=== PATIENT | male | born 1980 | race Caucasian/White ===

== ENCOUNTER 2016-12-27 13:37 | Emergency (ER) | payer SELFPAY ==
[2016-12-27 14:21] LABS: BASOPHILS 0.6 % (0-2); EOSINOPHILS 1.5 % (0-7); HEMATOCRIT 44.2 % (42.0-54.0); HEMOGLOBIN 15.3 g/dL (13.5-17.5); IMMATURE GRANULOCYTES 0.3 % (0-5); LYMPHOCYTES 19.2 % (15-50); MCH 32.6 pg (26.0-34.0); MCHC 34.6 g/dL (31.0-37.0); MEAN PLATELET VOLUME 10.6 fL (7.4-10.4); MONOCYTES 10.2 % (2-11); NEUTROPHILS 68.2 % (40-80); PLATELET COUNT 221 10x3/uL (130-400); RDW 13.9 % (11.5-14.5); WBC 7.9 10x3/uL (4.8-10.8)
[2016-12-27 14:42] LABS: ALBUMIN 3.5 g/dL (3.4-5.0); ALKALINE PHOSPHATASE 67 U/L (46-116); ALT (SGPT) 25 U/L (10-68); BILIRUBIN - TOTAL 0.25 mg/dL (0.2-1.3); CALC OSMOLALITY 283 mosm/kg (275-300); CALCIUM 8.7 mg/dL (8.5-10.1); CARBON DIOXIDE 29.7 mmol/L (21.0-32.0); CHLORIDE - SERUM 108 mmol/L (98-107); CREATININE - SERUM 0.9 mg/dL (0.6-1.3); GLUCOSE 75 mg/dL (74-106); POTASSIUM - SERUM 4.2 mmol/L (3.5-5.1); PROTEIN - SERUM 6.8 g/dL (6.4-8.2); SODIUM 144 mmol/L (136-145); UREA NITROGEN 8 mg/dL (7-18); eGFR NON AFRICAN AMERICAN > 90 mL/min (90-120)
[2016-12-27 15:07] LABS: APPEARANCE CLEAR (CLEAR); BILIRUBIN NEGATIVE (NEGATIVE); COLOR YELLOW (YELLOW); GLUCOSE NEGATIVE (NEGATIVE); KETONE NEGATIVE (NEGATIVE); LEUKOCYTE ESTERASE NEGATIVE (NEGATIVE); NITRITE NEGATIVE (NEGATIVE); PROTEIN NEGATIVE (NEGATIVE); UROBILINOGEN NORMAL (NORMAL)
== END 2016-12-27 15:40 | disposition home or self-care (01) ==
LOC: D.ER 13:37
PROVIDERS: Emergency Medicine
DX: R10.9 Unspecified abdominal pain (principal); R19.7 Diarrhea, unspecified; R11.10 Vomiting, unspecified; F17.200 Nicotine dependence, unspecified, uncomplicated

== ENCOUNTER 2017-09-22 10:29 | Emergency (ER) | payer SELFPAY | END 2017-09-22 12:08 | disposition home or self-care (01) | LOC: D.ER 10:29 | DX: S90.02XA Contusion of left ankle, initial encounter (principal); V43.52XA Car driver injured in collision with other type car in traffic accident, initial encounter; Y93.89 Activity, other specified; Y92.410 Unspecified street and highway as the place of occurrence of the external cause; S39.012A Strain of muscle, fascia and tendon of lower back, initial encounter; F17.200 Nicotine dependence, unspecified, uncomplicated ==

== ENCOUNTER 2017-09-28 15:46 | Emergency (ER) | payer SELFPAY ==
[2017-09-28] MEDS ORDERED: ULTRAM50 MG PO (23:32)
== END 2017-09-28 16:00 | disposition left against medical advice (07) ==
LOC: D.ER 15:46
DX: M25.572 Pain in left ankle and joints of left foot (principal); F17.200 Nicotine dependence, unspecified, uncomplicated

== ENCOUNTER 2017-09-28 20:44 | Emergency (ER) | payer SELFPAY ==
[~2017-09-28] VITALS: Ht 175.3 cm; Wt 60.9 kg
[2017-09-28 21:07] VITALS: Ht 175.3 cm; Wt 60.9 kg
[2017-09-28] MEDS ORDERED: ULTRAM50 MG PO (23:32)
[2017-09-29 05:56] VITALS: BP 125/86
== END 2017-09-29 00:26 | disposition home or self-care (01) ==
LOC: D.ER 20:44
DX: M25.572 Pain in left ankle and joints of left foot (principal); F17.200 Nicotine dependence, unspecified, uncomplicated

== ENCOUNTER 2017-10-12 16:42 | Emergency (ER) | payer SELFPAY ==
[~2017-10-12] VITALS: Ht 175.3 cm; Wt 60.9 kg
[~2017-10-12 16:42] MED LIST: ULTRAM50 MG PO
[2017-10-12 17:06] VITALS: Ht 175.3 cm; Wt 60.9 kg
[2017-10-12] MEDS ORDERED: VIBRAMYCIN 100100 MG PO (22:04)
[2017-10-12] MEDS ORDERED: VOLTAREN75 MG PO (22:04)
[2017-10-12 23:40] VITALS: BP 118/76
== END 2017-10-12 22:25 | disposition home or self-care (01) ==
LOC: D.ER 16:42
DX: L03.116 Cellulitis of left lower limb (principal); F17.200 Nicotine dependence, unspecified, uncomplicated

== ENCOUNTER 2018-06-20 13:50 | Emergency (ER) | payer SELFPAY ==
[~2018-06-20] VITALS: Ht 175.3 cm; Wt 60.9 kg
[~2018-06-20 13:50] MED LIST changes: +VIBRAMYCIN 100100 MG PO; +VOLTAREN75 MG PO
[2018-06-20 14:10] VITALS: Ht 175.3 cm; Wt 60.9 kg
[2018-06-20] MEDS ORDERED: IBUPROFEN600 MG PO (14:11)
[2018-06-20] MEDS ORDERED: HYDROCODON-ACE1 EAC2 PO (15:29)
[2018-06-20] MEDS ORDERED: KEFLEX500 MG PO (15:29)
[2018-06-20 15:40] VITALS: BP 128/72
== END 2018-06-20 15:40 | disposition home or self-care (01) ==
LOC: D.ER 13:50
DX: K02.9 Dental caries, unspecified (principal); K04.7 Periapical abscess without sinus

== ENCOUNTER 2019-09-25 16:59 | Emergency (ER) | payer SELFPAY ==
[~2019-09-25] VITALS: Ht 175.3 cm; Wt 62.7 kg
[~2019-09-25 16:59] MED LIST changes: +HYDROCODON-ACE1 EAC2 PO; +IBUPROFEN600 MG PO; +KEFLEX500 MG PO
[2019-09-25 17:51] VITALS: BP 147/93; Ht 175.3 cm; Wt 62.7 kg
== END 2019-09-25 19:30 | disposition home or self-care (01) ==
LOC: D.ER 16:59
DX: M54.40 Lumbago with sciatica, unspecified side (principal); M79.605 Pain in left leg; R20.0 Anesthesia of skin

== ENCOUNTER 2019-10-09 18:17 | Emergency (ER) | payer SELFPAY ==
[~2019-10-09] VITALS: Ht 175.3 cm; Wt 62.3 kg
[2019-10-09 18:25] VITALS: Ht 175.3 cm; Wt 62.3 kg
[2019-10-09] MEDS ORDERED: VOLTAREN75 MG PO (20:30)
[2019-10-09] MEDS ORDERED: BACLOFEN20 M1 PO (20:30)
[2019-10-09 20:39] VITALS: BP 122/79
== END 2019-10-09 20:39 | disposition home or self-care (01) ==
LOC: D.ER 18:17
DX: M54.5 Low back pain (principal); S20.219A Contusion of unspecified front wall of thorax, initial encounter; W19.XXXA Unspecified fall, initial encounter; Y93.9 Activity, unspecified; Y92.9 Unspecified place or not applicable